=== PATIENT | female | born 1970 | race Caucasian/White ===

== ENCOUNTER 2017-12-15 09:37 | Emergency (ER) | payer MEDICAID ==
[~2017-12-15] VITALS: Ht 152.4 cm; Wt 64.0 kg
[2017-12-15] MEDS ORDERED: FAMOTIDINE 20MG/2ML VIAL IV STA (11:14)
[2017-12-15] MEDS ORDERED: SODIUM CHLORIDE 0.9% 1,000 ML IV ONE ×2 (11:14)
[2017-12-15] MEDS ORDERED: ONDANSETRON HCL 4MG/2ML VIAL IV ONE (11:15)
[2017-12-15] MEDS ORDERED: MORPHINE SULFATE 4 MG/ML CPJ (NOT FOR IM USE) IV ONE (11:15)
[2017-12-15 11:42] LABS: CHLORIDE 102 mEq/L (98-107); PROTHROMBIN TIME 10.5 sec (9.4-11.6)
[2017-12-15 11:43] LABS: BASOPHILS % 0.6 % (0.0-2.0); EOSINOPHILS % 2.1 % (0.0-5.0); HEMATOCRIT. 37.4 % (36.0-48.0); HEMOGLOBIN. 12.2 g/dL (12.0-16.0); LYMPHOCYTES % 28.4 % (20.0-50.0); MEAN CORPUSCULAR VOLUME 85.5 fL (81.0-99.0); MEAN PLATELET VOLUME 8.8 fl (7.4-10.4); MONOCYTES % 6.3 % (2.0-8.0); NEUTROPHILS % 62.6 % (40.0-76.0); PLATELET 322 x1000/uL (130-400); RED BLOOD CELL COUNT 4.37 mill/uL (4.2-5.4); RED CELL DISTRIBUTION WIDTH 14.5 % (11.6-14.6)
[2017-12-15 11:53] LABS: B-HCG QUANTITATIVE < 1 mIU/mL (<3)
[2017-12-15 12:21] LABS: KETONES URINE NEGATIVE (NEGATIVE); LEUKOCYTE ESTERASE URINE NEGATIVE (NEGATIVE); NITRITE URINE NEGATIVE (NEGATIVE); OCCULT BLOOD URINE 3+ (NEGATIVE); PH URINE 5.5 (4.5-8.0); PROTEIN URINE 2+ (NEGATIVE); SPECIFIC GRAVITY URINE 1.028 (1.005-1.030); UROBILINOGEN URINE 0.2 E.U./dL (0.2-1.0)
[2017-12-15 12:26] LABS: CLARITY URINE BLOODY (CLEAR); COLOR URINE RED (YELLOW)
[2017-12-15] MEDS ORDERED: KETOROLAC 30MG/ML VIAL IV ONE (14:15)
[2017-12-15 15:06] VITALS: BP 123/70
== END 2017-12-15 15:22 | disposition home or self-care (01) ==
LOC: ER 10:55
DX: D25.9 Leiomyoma of uterus, unspecified (principal)
CPT/HCPCS: 36415; 76830; 76856; 80053; 81003; 81025; 83605; 83690; 84702; 85025; 85610; 86850; 86900; 86901; 96361; 96374; 96375; 99285; J1885; J2270; J2405; J3490; J7030